=== PATIENT | male | born 1940 | race Caucasian/White ===

== ENCOUNTER 2017-06-10 20:09 | Emergency (ER) | payer MEDICARE, MEDICAID ==
--- NOTE | 2017-06-10 20:37 | EDM.PDOC ---
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 Does not know sign language ) - History of Present Illness INITIAL COMMENTS - FREE TEXT/NARRATIVE: Patient comes into the emergency department with a 2 day history of a cough with production. Daughter had noted that he had 102 temperature this morning with chills and not wanting to eat. Patient was given Advil and allowed to rest when he woke up he was feeling somewhat better. But still no appetite. Daughter stated he was taken an afternoon nap and she went to talk to him and she was unable to wake him up. Pt is deaf but she felt he normally is able to respond with her techniques of waking. She became very nervous and called EMS. When EMS got on scene and first responders they noted the patient to be alert and oriented talking had no concerns hemodynamically stable. Patient was transported by EMS to the emergency department per family's wishes. Onset: Gradual Past Medical History Respiratory History: Reports: COPD Other Gastrointestinal History: Chronic prostatitis, Liver cirrhosis Psychiatric History: Reports: Anxiety ED ROS GENERAL - Review of Systems Review Of Systems: See Below Constitutional: Reports: Fever, Chills, Malaise, Fatigue, Decreased Appetite HEENT: Reports: No Symptoms Respiratory: Reports: Shortness of Breath (chronic ) Cardiovascular: Denies: Chest Pain, Blood Pressure Problem, Dyspnea on Exertion , Edema, Lightheadedness Endocrine: Reports: No Symptoms GI/Abdominal: Reports: No Symptoms : Reports: Urinary Retention (chronic ) Musculoskeletal: Reports: No Symptoms Skin: Reports: No Symptoms Neurological: Reports: No Symptoms Psychiatric: Reports: Anxiety, Depression Hematologic/Lymphatic: Reports: No Symptoms Immunologic: Reports: No Symptoms ED EXAM, GENERAL - Physical Exam Exam: See Below Exam Limited By: Language Barrier General Appearance: Alert, WD/WN, No Apparent Distress Eye Exam: Bilateral Eye: EOMI Throat/Mouth: Normal Inspection Respiratory/Chest: No Respiratory Distress, No Accessory Muscle Use, Chest Non- Tender, Decreased Breath Sounds. No: Respiratory Distress, Crackles, Rales, Wheezing Cardiovascular: Normal Peripheral Pulses, Regular Rate, Rhythm Peripheral Pulses: 2+: Radial (L), Radial (R), Dorsalis Pedis (L), Dorsalis Pedis (R) GI/Abdominal: Normal Bowel Sounds, Soft, Non-Tender, No Distention, No Abnormal Bruit Back Exam: Normal Inspection, Full Range of Motion Extremities: Normal Inspection, Normal Range of Motion Neurological: Alert, Oriented, Normal Gait Psychiatric: Normal Affect, Normal Mood Skin Exam: Warm, Dry, Intact, Normal Color Lymphatic: No Adenopathy EKG INTERPRETATION EKG Date: 06/10/17 Time: 19:32 (ambulance 12 lead with transmission ) Rhythm: NSR QRS: Normal ST-T: Normal QT: Normal Comparison: NA - No Prior EKG Course - Orders/Labs/Meds Orders: Active Orders 24 hr Category Date Time Status Chest 1V Frontal [CR] Stat Exams 06/10/17 20:16 Taken COMPREHENSIVE METABOLIC PN,CMP [CHEM] Stat Lab 06/10/17 20:35 Received CULTURE BLOOD [BC] Stat Lab 06/10/17 20:35 Received CULTURE BLOOD [BC] Stat Lab 06/10/17 20:40 Received PRO B-TYPE NATRIUR PEPT,BNPPRO [CHEM] Stat Lab 06/10/17 20:35 Received UA W/MICROSCOPIC [URIN] Stat Lab 06/10/17 20:20 Ordered Azithromycin [Zithromax] Med 06/11/17 21:21 Once 500 mg PO ONETIME ONE Blood Culture x2 Reflex Set [OM.PC] Stat Oth 06/10/17 20:16 Ordered Medication Orders Azithromycin (Zithromax) 500 mg PO ONETIME ONE Stop: 06/11/17 21:22 Labs: Laboratory Tests 06/10/17 06/10/17 06/10/17 Range/Units 20:20 20:35 20:35 WBC 7.3 (4.0-10.0) x10^3/uL RBC 3.21 L (4.5-6.0) x10^6/uL Hgb 9.7 L (14.0-18.0) g/dL Hct 29.7 L (40.0-52.0) % MCV 92.5 (78.0-93.0) fL MCH 30.2 (26.0-32.0) pg MCHC 32.7 (32.0-36.0) g/dL RDW Coeff of Renetta 17.6 H (10.0-15.0) % Plt Count 182 (130-400) x10^3/uL Neut % (Auto) 73.4 (50.0-80.0) % Lymph % (Auto) 21.4 L (25.0-50.0) % [place] % (Auto) 4.8 (2.0-11.0) % Eos % (Auto) 0.3 (0.0-4.0) % Baso % (Auto) 0.1 L (0.2-1.2) % Lactic Acid 1.2 (0.4-2.0) mmol/L Urine Color Yellow (YELLOW) Urine Appearance Clear (CLEAR) Urine pH 5.5 (5.0-8.0) Ur Specific [place] 1.010 Urine Protein 30 H (NEGATIVE) mg/dL Urine Glucose (UA) Negative (NEGATIVE) mg/dL Urine Ketones Negative (NEGATIVE) mg/dL Urine Occult Blood Trace-lysed H (NEGATIVE) Urine Nitrite Negative (NEGATIVE) Urine Bilirubin Negative (NEGATIVE) Urine Urobilinogen 0.2 (0.2) EU/dL Ur Leukocyte Esterase Negative (NEGATIVE) Urine RBC 0-5 (NOT SEEN) /HPF Urine WBC 0-5 (NOT SEEN) /HPF Ur Squamous Epith Cells Not seen (NEGATIVE) /HPF Urine Bacteria Few H (NEGATIVE) /HPF Urine Mucus Not seen (NEGATIVE) /LPF Meds: Medications Generic Name Dose Route Start Last Admin Trade Name Freq PRN Reason Stop Dose Admin Azithromycin 500 mg 06/11/17 21:21 Zithromax PO 06/11/17 21:22 ONETIME ONE Departure - Departure Time of Disposition: 21:30 Disposition: Home, Self-Care 01 Condition: Good Clinical Impression: Acute bacterial bronchitis - Discharge Information Instructions: Acute Bronchitis, Adult Forms: ED Department Discharge Additional Instructions: 1. Rest 2. Take antibiotics as prescribed 3. Take Aleve for fever ( avoid ibuprofen for patient has liver cirrhosis) 4. Follow up with PCP in one week if not feeling better 5. Return to the emergency department if symptoms worsen 6. Activity and diet as tolerated 7. Increase water intake while ill 8. Ensure Patient is taking an antibiotic with food - My Orders Last 24 Hours: My Active Orders 06/10/17 20:16 Chest 1V Frontal [CR] Stat Blood Culture x2 Reflex Set [OM.PC] Stat 06/10/17 20:20 UA W/MICROSCOPIC [URIN] Stat 06/10/17 20:35 COMPREHENSIVE METABOLIC PN,CMP [CHEM] Stat CULTURE BLOOD [BC] Stat PRO B-TYPE NATRIUR PEPT,BNPPRO [CHEM] Stat 06/10/17 20:40 CULTURE BLOOD [BC] Stat 06/11/17 21:21 Azithromycin [Zithromax] 500 mg PO ONETIME ONE - Assessment/Plan Last 24 Hours: My Active Orders 06/10/17 20:16 Chest 1V Frontal [CR] Stat Blood Culture x2 Reflex Set [OM.PC] Stat 06/10/17 20:20 UA W/MICROSCOPIC [URIN] Stat 06/10/17 20:35 COMPREHENSIVE METABOLIC PN,CMP [CHEM] Stat CULTURE BLOOD [BC] Stat PRO B-TYPE NATRIUR PEPT,BNPPRO [CHEM] Stat 06/10/17 20:40 CULTURE BLOOD [BC] Stat 06/11/17 21:21 Azithromycin [Zithromax] 500 mg PO ONETIME ONE Assessment:: 1. Unkown cause of fever earlier in the day 2. fatigue 3. Productive cough Plan: 1. Labs completed in ER today with results reviewed with the pt and family 2. X-ray completed in ER today with results reviewed with the pt and family 3. blood cultures and urine collected in ER 4. IV fluids hanging prior to arrival-continue fluid bolus in ER 5. EKG completed via EMS with transmission- NSR-RBB 6. Azithromycin given to the patient in the emergency department tonight. A prescription sent with the patient to finish out the next 4 days. 7. Education provided to the family regarding worsening symptoms him in the patient's return to emergency department. 8. Pt and family also advised to see PCP if not better in a week
[2017-06-10 21:26] LABS: CHLORIDE,CL 99 mmol/L (98-107); SODIUM,NA 134 mmol/L (136-145)
[2017-06-10] MEDS ORDERED: Azithromycin 250 MG Tab PO STA (21:59)
[2017-06-11] MEDS ORDERED: Azithromycin 250 MG Tab PO ONE (21:21)
== END 2017-06-10 21:40 | disposition home or self-care (01) ==
LOC: VM.ED 20:09
DX: J20.9 Acute bronchitis, unspecified (principal); B96.89 Other specified bacterial agents as the cause of diseases classified elsewhere
CPT/HCPCS: 36415; 71045; 80053; 81001; 83605; 83880; 85025; 87040; 99285; A9270